=== PATIENT | female | born 1970 | race Caucasian/White ===

== ENCOUNTER 2016-05-27 16:53 | Emergency (ER) | payer OTHER ==
[2016-05-27 17:38] VITALS: PULSE 78
--- NOTE | 2016-05-27 17:43 | ERPHSYRPT ---
- History of Present Illness Time Seen by Provider: 05/27/16 17:30 Source: patient Exam Limitations: no limitations Patient Subjective Stated Complaint: pt states she was at work and injured right index finger in a door at 1630. Triage Nursing Assessment: pt pink, warm, dry. abrasion noted to right index finger to dorsal side and superficial laceration noted to volar side. mils swelling noted to distal joint. Physician History: 45 y/o female comes to the ER after having her right index finger getting slammed by a door. Pt arrives with a superficial laceration that continues to bleed. Pt admits to minimal bleeding. Last tetanus shot was 1990. Occurred: just prior to arrival Method of Injury: direct blow Quality: constant Severity of Pain-Max: mild Severity of Pain-Current: mild Extremities Pain Location: 2nd finger: right Modifying Factors: Improves With: nothing Allergies/Adverse Reactions: No Known Drug Allergies Allergy (Unverified 05/27/16 17:38) Home Medications: Fexofenadine HCl [Clara] 180 mg PO DAILY 06/11/14 [History] Venlafaxine HCl ER 75 mg [Effexor XR 75 MG] 75 mg PO DAILY 06/11/14 [ History] Naproxen 500 mg PO DAILY PRN PRN 05/27/16 [History] Hx Tetanus, Diphtheria Vaccination/Date Given: Yes (unknown) Hx Influenza Vaccination/Date Given: Yes Hx Pneumococcal Vaccination/Date Given: No Immunizations Up to Date: Yes - Review of Systems Constitutional: No Fever, No Chills Eyes: No Symptoms Ears, Nose, & Throat: No Symptoms Respiratory: No Cough, No Dyspnea Cardiac: No Chest Pain, No Edema, No Syncope Abdominal/Gastrointestinal: No Abdominal Pain, No Nausea, No Vomiting, No Diarrhea Genitourinary Symptoms: No Dysuria Musculoskeletal: Joint Pain, Joint Swelling Skin: No Rash Neurological: No Dizziness, No Focal Weakness, No Sensory Changes Psychological: No Symptoms Endocrine: No Symptoms All Other Systems: Reviewed and Negative - Past Medical History Pertinent Past Medical History: Yes Respiratory History: Asthma GI Medical History: GERD Psycho-Social History: Anxiety - Past Surgical History Past Surgical History: Yes Musculoskeletal: Orthopedic Surgery Female Surgical History: Section, Tubal Ligation, Other - Social History Smoking Status: Never smoker Exposure to second hand smoke: Yes Drug Use: none Patient Lives Alone: No - Female History Hx Last Menstrual Period: 2 months - Nursing Vital Signs Nursing Vital Signs: Initial Vital Signs Temperature 98.1 F Temperature Source Oral Pulse Rate 78 Respiratory Rate 18 Blood Pressure 128/80 Pain Intensity 0 - Physical Exam General Appearance: alert Eyes, Ears, Nose, Throat Exam: moist mucous membranes Neck Exam: non-tender, supple Cardiovascular/Respiratory Exam: chest non-tender, normal breath sounds, regular rate/rhythm, no respiratory distress Abdominal Exam: non-tender, No guarding Back Exam: normal inspection, No vertebral tenderness Hand Exam: bone tenderness Neuro/Tendon Exam: normal sensation, normal motor functions Mental Status Exam: alert, oriented x 3, cooperative Skin Exam: normal color, warm, dry, laceration Ordered Tests: Active Orders 24 hr Category Date Time Status Wound Care STAT Care 05/27/16 17:40 Active FINGER(S) Stat Exams 05/27/16 17:32 Taken - Progress Progress: improved Progress Note: 05/27/16 18:17 The finger x ray is within normal limits. Pt had the laceration repaired by dermabond - Departure Time of Disposition: 18:17 Departure Disposition: Home Clinical Impression: Finger laceration Condition: Stable Critical Care Time: No Instructions: Laceration Repair -- Finger
[2016-05-27] MEDS ORDERED: Adacel Vial IM ONE ×2 (18:16→18:17)
[2016-05-27 18:30] VITALS: BP 120/79
--- NOTE | 2016-05-27 22:50 | XRAY ---
Indication: Bruising and laceration following crush injury. Comparison: None 3 views of the right second finger obtained. No bony, articular, or soft tissue abnormalities.
== END 2016-05-27 18:30 | disposition home or self-care (01) ==
LOC: ED 16:53
PROC: 0HQFXZZ Repair Right Hand Skin, External Approach (ICD-10-PCS; principal; 2016-05-27)
DX: S61.210A Laceration without foreign body of right index finger without damage to nail, initial encounter (principal); W23.0XXA Caught, crushed, jammed, or pinched between moving objects, initial encounter; Y92.239 Unspecified place in hospital as the place of occurrence of the external cause
CPT/HCPCS: 12001; 73140; 90471; 90715; 99283

== ENCOUNTER 2022-10-29 12:08 | Emergency (ER) | payer OTHER ==
[2022-10-29] MEDS ORDERED: Rocephin 1000 MG INJ IM ONE (12:25)
[2022-10-29 12:40] VITALS: PULSE 67
--- NOTE | 2022-10-29 12:41 | ERPHSYRPT ---
- History of Present Illness Time Seen by Provider: 10/29/22 12:37 Source: patient Exam Limitations: no limitations Physician History: Patient is 52-year-old female recently underwent hysterectomy for endometrial carcinoma 2 weeks ago and recently patient had removal of richy couple days ago since yesterday she started having redness and erythema around the surgical wound margin with some redness. Patient denies any discharge or fever or chills. Patient denies any nausea vomiting diarrhea or constipation. Patient also denies any vagina lower urinary discharge. Timing/Duration: today Associated Symptoms: denies symptoms Allergies/Adverse Reactions: No Known Drug Allergies Allergy (Verified 10/29/22 12:20) Home Medications: Fexofenadine HCl [Clara] 180 mg PO DAILY 06/11/14 [History] Citalopram Hydrobromide [Celexa] 1 tab PO DAILY 10/29/22 [History] Hx Tetanus, Diphtheria Vaccination/Date Given: Yes (unknown) Hx Influenza Vaccination/Date Given: Yes Hx Pneumococcal Vaccination/Date Given: No - Review of Systems Constitutional: No Fever, No Chills Eyes: No Symptoms Ears, Nose, & Throat: No Symptoms Respiratory: No Cough, No Dyspnea Cardiac: No Chest Pain, No Edema, No Syncope Abdominal/Gastrointestinal: No Abdominal Pain, No Nausea, No Vomiting, No Diarrhea Genitourinary Symptoms: No Dysuria Musculoskeletal: No Back Pain, No Neck Pain Skin: No Rash Neurological: No Dizziness, No Focal Weakness, No Sensory Changes Psychological: No Symptoms Endocrine: No Symptoms All Other Systems: Reviewed and Negative - Past Medical History Pertinent Past Medical History: Yes Neurological History: No Pertinent History Cardiac History: No Pertinent History Respiratory History: Asthma Endocrine Medical History: No Pertinent History Musculoskeletal History: Arthritis GI Medical History: GERD Psycho-Social History: Anxiety - Past Surgical History Past Surgical History: Yes Musculoskeletal: Orthopedic Surgery Female Surgical History: Section, Tubal Ligation, Other - Social History Smoking Status: Never smoker Exposure to second hand smoke: Yes Drug Use: none Patient Lives Alone: No - Physical Exam General Appearance: no apparent distress, alert Eye Exam: PERRL/EOMI, eyes nml inspection Ears, Nose, Throat Exam: normal ENT inspection, TMs normal, pharynx normal, moist mucous membranes Neck Exam: normal inspection, non-tender, supple, full range of motion Respiratory Exam: normal breath sounds, lungs clear, No respiratory distress Cardiovascular Exam: regular rate/rhythm, normal heart sounds, normal peripheral pulses Gastrointestinal/Abdomen Exam: soft, normal bowel sounds, other (hysterectomy surgical scar area red, no purulent discharge), No tenderness, No mass Pelvic Exam: not done Back Exam: normal inspection, normal range of motion, No CVA tenderness, No vertebral tenderness Extremity Exam: normal inspection, normal range of motion, pelvis stable Neurologic Exam: alert, oriented x 3, cooperative, normal mood/affect, nml cerebellar function, nml station & gait, sensation nml, No motor deficits Skin Exam: normal color, warm, dry, No rash Lymphatic Exam: No adenopathy - Course Nursing assessment & vital signs reviewed: Yes Ordered Tests: Active Orders 24 hr Category Date Time Status Wound Care STAT Care 10/29/22 12:24 Active Medication Summary Discontinued Medications Generic Name Dose Route Start Last Admin Trade Name Freq PRN Reason Stop Dose Admin Ceftriaxone Sodium 1,000 mg 10/29/22 12:25 Ceftriaxone Sodium 1000 Mg Inj Vial IM 10/29/22 12:26 STAT ONE - Progress Progress: unchanged Counseled pt/family regarding: diagnosis, need for follow-up - Departure Departure Disposition: Home Clinical Impression: Surgical wound infection Condition: Stable Critical Care Time: No Referrals: LAURO WHITLEY MD [Primary Care Provider] - Follow up/PCP as directed Instructions: Wound Care (DC) Additional Instructions: Discharge/Care Plan WILLY DE SANTIAGO was seen on 10/29/22 in the Emergency Room. The patient was counseled regarding Diagnosis,Lab results, Imaging studies, need for follow up and when to return to the Emergency Room. Prescriptions given: Discharge Note I have spoken with the patient and/or caregivers. I have explained the patient's condition, diagnosis and treatment plan based on the information available to me at this time. I have answered the patient's and/or caregiver's questions and addressed any concerns. The patient and/or caregivers have as good understanding of the patient's diagnosis, condition and treatment plan as can be expected at this point. The vital signs have been stable. The patient's condition is stable and appropriate for discharge from the emergency department. The patient will pursue further outpatient evaluation with the primary care physician or other designated or consulting physician as outlined in the discharge instructions. The patient and/or caregivers are agreeable to this plan of care and follow-up instructions have been explained in detail. The patient and/or caregivers have received these instruction. The patient/and or caregivers are aware that any significant change in condition or worsening of symptoms should prompt an immediate return to this or the closest emergency department or call 911. WILLY DE SANTIAGO was seen on 10/29/22 n the Emergency Room. At that time you were treated for an emergent condition, during your visit Laboratory, Radiology and/or other procedures may have been ordered. It is very important that you follow-up with your Primary Care Physician LAURO WHITLEY within the next 24- 48 hours to review your Emergency Room visit and the final results of testing that was ordered. Some test results such as Urine Cultures, Blood Cultures, and other cultures if ordered will not be finalized for 24-48 hours. If you do not have a Primary Care Provider please call the medical records department at [phone] ext [phone] to obtain a copy of your results or you may sign into our patient portal to obtain these results by visiting us @ [email or web address] and completing the following steps: 1. Click on the Patient Portal link 2. Click the Patient Self Enrollment Link to complete the enrollment form and entering your 3. Once the enrollment form is completed you will receive an email with a temporary ID and password at the email address you provided. 4. Next choose a user name and password. Your user name must be at least 4 characters long and your password must be at least 4 characters long. 5. Choose a security question from the list and provide your answer to the question. If you already have signed into the Health Portal you may access your Health Care Information 05/12 by the following steps: 1. Login to our website @ [email or web address] 2. Enter your original user name and password. FAQS The [facility] Health Portal is an online tool that contains your Lab Results, Radiology Reports, Visit History, Discharge Instructions and Health Summary Lab and Radiology Results will not be available for 72 hours on the portal. The Portal is a secure site, passwords are encryted and URLs are re-written so they cannot be copied and pasted. You and authorized family members are the only ones who can access your Portal. Also there is a timeout feature that protects your information if you leave the Portal page open. If you have technical difficulty please use the Contact Us link on the page this will allow you to submit any questions you have regarding the Portal or you may contact the Medical Record Department at [phone] ext [phone]. Prescriptions: Cephalexin Mh 500 mg [Keflex 500 mg] 500 mg PO Q6H #40 cap
[2022-10-29] MEDS ORDERED: Rocephin 1000 MG INJ ONE (13:00)
[2022-10-29] MEDS ORDERED: XYLOCAINE 1% HCL 20 ML MDV ONE (13:00)
[2022-10-29 13:03] VITALS: BP 133/63; O2SAT 97
== END 2022-10-29 13:32 | disposition home or self-care (01) ==
LOC: ED 12:08
DX: T81.41XA Infection following a procedure, superficial incisional surgical site, initial encounter (principal); Z79.899 Other long term (current) drug therapy
CPT/HCPCS: 96372; 99283; J0696

== ENCOUNTER 2024-03-28 09:38 | Day surgery (SDC) | payer OTHER ==
[2024-03-28] MEDS ORDERED: DIPRIVAN 200 MG/20 ML IV ONE ×2 (11:22→11:34)
[2024-03-28] MEDS ORDERED: Versed 2 MG/2 ML Injection ONE (11:22)
[2024-03-28 11:51] VITALS: TEMP 98.1
[2024-03-28 12:04] VITALS: BP 104/73; PULSE 66; RESP 16; O2SAT 97
--- NOTE | 2024-03-29 09:24 | OP ---
SURGERY DATE/TIME: 03/28/2024 [id number] PREOPERATIVE DIAGNOSIS: Need for colorectal cancer screening. POSTOPERATIVE DIAGNOSIS: Polyp. PROCEDURE: Colonoscopy with polypectomy. SURGEON: Ambrosio Craven MD ANESTHESIA: IV anesthesia. PATIENT CONDITION: Stable. COMPLICATIONS: None. SPECIMEN: Polyp. INDICATION: The patient is a 53-year-old that has a second-degree relative, unknown age, that had colon cancer, is due for screening, average risk. She would like to proceed. FINDINGS: 1) Good preparation. 2) 2 mm rectosigmoid polyp, might be hyperplastic. DESCRIPTION OF PROCEDURE AND FINDINGS: Patient was brought to the endoscopy suite. Routinely positioned and prepared. IV anesthesia induced by Anesthesia. External exam was normal. Digital rectal exam was normal. Colonoscope was inserted and advanced to the cecum, confirmed by the appendiceal orifice and the ileocecal valve. The preparation was Aronchick good preparation. A greater than 6 minute withdrawal time was performed. There was just one 2 mm polyp at the rectosigmoid. Polyp might be hyperplastic or adenomatous, which was taken with a cold forceps. That was satisfactory. Retroflexion in the rectum was normal. The patient tolerated the procedure well, was taken to Recovery in stable condition.
== END 2024-03-28 12:13 | disposition home or self-care (01) ==
LOC: SDC 09:38
PROVIDERS: ATTEND Surgery
DX: Z12.11 Encounter for screening for malignant neoplasm of colon (principal); K63.5 Polyp of colon; Z80.0 Family history of malignant neoplasm of digestive organs
CPT/HCPCS: 93005; J2250; J2704